=== PATIENT | female | born 1995 | race Two or more races ===

== ENCOUNTER → 2018-06-25 | Outpatient (CLI) | payer OTHER | END | disposition home or self-care (01) | LOC: LAB 16:36 | PROVIDERS: ATTEND Preventive Medicine Preventive Medicine/Occupational Environmental Medicine | DX: Z02.1 Encounter for pre-employment examination (principal) | CPT/HCPCS: 86735; 86762; 86765; 86787 ==

== ENCOUNTER → 2019-02-05 | Outpatient (CLI) | payer BC ==
[2019-02-05 13:11] LABS: Basophils # (auto) 0 uL; Basophils % (auto) 0.2 % (0.0-2.0); Eosinophils # (auto) 0.2 uL; Eosinophils % (auto) 1.6 % (0.0-7.0); Hematocrit 35.8 % (36.0-46.0); Hemoglobin 11.8 g/dL (12.2-16.2); Lymphocytes # (auto) 1.8 uL; Lymphocytes % (auto) 17.2 % (10.0-50.0); Mean Corpuscular Volume 81.8 fL (80.0-100.0); Monocytes # (auto) 0.5 uL; Monocytes % (auto) 4.9 % (0.0-12.0); Neutrophils # (auto) 7.8 uL; Neutrophils % (auto) 76.1 % (37.0-80.0); Platelet Count (auto) 283 10^3/uL (140-450); Red Blood Cells 4.37 10^6/uL (4.0-5.20); Red Cell Distribution Width 15.3 % (11.8-14.3); White Blood Cell 10.3 10^3/uL (4.4-10.8)
[2019-02-05 13:40] LABS: Alcohol, Urine < 3.0 mg/dL (0-5); Amphetamine Screen, Urine NEGATIVE (NEGATIVE); Barbiturate Scree,Urine NEGATIVE (NEGATIVE); Benzodiazephine Screen, Urine NEGATIVE (NEGATIVE); Cannabinoid Screen, Urine NEGATIVE (NEGATIVE); Cocaine Screen, Urine NEGATIVE (NEGATIVE); Opiate Scree,Urine NEGATIVE (NEGATIVE); Phencyclidine Screen, Urine NEGATIVE (NEGATIVE)
[2019-02-06 07:06] LABS: RPR Non Reactive (Non Reactive)
== END | disposition home or self-care (01) ==
LOC: LAB 12:15
PROVIDERS: ATTEND Obstetrics & Gynecology
DX: Z34.01 Encounter for supervision of normal first pregnancy, first trimester (principal); Z3A.08 8 weeks gestation of pregnancy
CPT/HCPCS: 36415; 80307; 84112; 84702; 85025; 86592; 86703; 86762; 86850; 86900; 86901; 87086; 87340

== ENCOUNTER → 2019-04-07 | Outpatient (CLI) | payer BC ==
[2019-04-07 07:40] LABS: Basophils # (auto) 0 uL; Basophils % (auto) 0.3 % (0.0-2.0); Eosinophils # (auto) 0.3 uL; Eosinophils % (auto) 2.4 % (0.0-7.0); Hematocrit 32.4 % (36.0-46.0); Hemoglobin 10.4 g/dL (12.2-16.2); Lymphocytes # (auto) 2.4 uL; Lymphocytes % (auto) 21.7 % (10.0-50.0); Mean Corpuscular Hemoglobin 25.6 pg (28.0-32.0); Mean Corpuscular Hgb Conc. 32.1 g/dL (32.0-36.0); Mean Corpuscular Volume 79.8 fL (80.0-100.0); Monocytes # (auto) 0.7 uL; Monocytes % (auto) 6.6 % (0.0-12.0); Neutrophils # (auto) 7.7 uL; Platelet Count (auto) 252 10^3/uL (140-450); Red Blood Cells 4.07 10^6/uL (4.0-5.20); Red Cell Distribution Width 14.2 % (11.8-14.3); White Blood Cell 11.2 10^3/uL (4.4-10.8)
== END | disposition home or self-care (01) ==
LOC: LAB 07:14
PROVIDERS: ATTEND Obstetrics & Gynecology
DX: O99.810 Abnormal glucose complicating pregnancy (principal); Z3A.16 16 weeks gestation of pregnancy
CPT/HCPCS: 36415; 82951; 85025

== ENCOUNTER 2019-04-20 12:52 | Observation (INO) | payer BC ==
[~2019-04-20] VITALS: Ht 154.9 cm; Wt 79.4 kg
[2019-04-20] MEDS ORDERED: LACTATED RINGER'S 1,000 ML IV ONE (13:45)
[2019-04-20] MEDS ORDERED: TERBUTALINE SULFATE 1 MG/ML 1ML VIAL SC ONE (15:22)
[2019-04-20] MEDS ORDERED: TERBUTALINE SULFATE 1 MG/ML 1ML VIAL SC SCH (15:30)
== END 2019-04-20 15:55 | disposition home or self-care (01) | DRG 833 ==
LOC: LDRP 12:52
PROVIDERS: ADMIT Specialist; ATTEND Specialist
DX: O62.9 Abnormality of forces of labor, unspecified (principal); O24.410 Gestational diabetes mellitus in pregnancy, diet controlled; Z3A.33 33 weeks gestation of pregnancy
CPT/HCPCS: 59025; 81002; 96372; G0378; J3105; 96361; 96365

== ENCOUNTER → 2019-04-29 | Outpatient (CLI) | payer BC ==
[2019-04-29 09:35] LABS: Basophils # (auto) 0 uL; Eosinophils # (auto) 0.2 uL; Hemoglobin 11.1 g/dL (12.2-16.2); Monocytes # (auto) 0.6 uL; Platelet Count (auto) 264 10^3/uL (140-450)
[2019-04-29 09:37] LABS: Basophils % (auto) 0.5 % (0.0-2.0); Eosinophils % (auto) 1.9 % (0.0-7.0); Hematocrit 33.3 % (36.0-46.0); Lymphocytes # (auto) 1.9 uL; Lymphocytes % (auto) 20.4 % (10.0-50.0); Mean Corpuscular Hemoglobin 25.5 pg (28.0-32.0); Mean Corpuscular Hgb Conc. 33.3 g/dL (32.0-36.0); Mean Corpuscular Volume 76.6 fL (80.0-100.0); Monocytes % (auto) 6.7 % (0.0-12.0); Neutrophils # (auto) 6.7 uL; Neutrophils % (auto) 70.5 % (37.0-80.0); Red Blood Cells 4.35 10^6/uL (4.0-5.20); Red Cell Distribution Width 14.5 % (11.8-14.3); White Blood Cell 9.5 10^3/uL (4.4-10.8)
[2019-04-30 06:06] LABS: RPR Non Reactive (Non Reactive)
== END | disposition home or self-care (01) ==
LOC: LAB 09:24
PROVIDERS: ATTEND Obstetrics & Gynecology
DX: Z34.83 Encounter for supervision of other normal pregnancy, third trimester (principal); Z3A.35 35 weeks gestation of pregnancy
CPT/HCPCS: 36415; 84112; 85025; 86592

== ENCOUNTER 2019-05-21 09:05 | Observation (INO) | payer BC ==
[2019-05-21] MEDS ORDERED: PREN-96 PO (11:43)
== END 2019-05-21 11:30 | disposition home or self-care (01) | DRG 833 ==
LOC: LDRP 09:05
PROVIDERS: ADMIT Obstetrics & Gynecology; ATTEND Obstetrics & Gynecology
DX: O24.419 Gestational diabetes mellitus in pregnancy, unspecified control (principal); Z3A.37 37 weeks gestation of pregnancy
CPT/HCPCS: 59025; 76818; 81002; 82962; G0378

== ENCOUNTER 2019-05-28 09:15 | Observation (INO) | payer BC ==
[~2019-05-28] VITALS: Ht 154.9 cm; Wt 78.5 kg
[~2019-05-28 09:15] MED LIST: PREN-96 PO
== END 2019-05-28 11:20 | disposition home or self-care (01) | DRG 833 ==
LOC: LDRP 09:15
PROVIDERS: ADMIT Obstetrics & Gynecology; ATTEND Obstetrics & Gynecology
DX: O24.419 Gestational diabetes mellitus in pregnancy, unspecified control (principal); Z3A.38 38 weeks gestation of pregnancy
CPT/HCPCS: 59025; 76818; 81002; 82948; 82962; G0378

== ENCOUNTER 2019-06-04 09:30 | Observation (INO) | payer BC | END 2019-06-04 10:30 | disposition home or self-care (01) | DRG 833 | LOC: LDRP 09:30 | PROVIDERS: ADMIT Obstetrics & Gynecology; ATTEND Obstetrics & Gynecology | DX: O24.419 Gestational diabetes mellitus in pregnancy, unspecified control (principal); Z3A.39 39 weeks gestation of pregnancy | CPT/HCPCS: 59025; 76818; 81002; 82962; G0378 ==

== ENCOUNTER 2019-06-07 04:37 | Inpatient (IN) | payer BC ==
[~2019-06-07] VITALS: Ht 154.9 cm; Wt 78.5 kg
[2019-06-07] MEDS ORDERED: LACTATED RINGER'S 1,000 ML IV SCH (05:41)
[2019-06-07] MEDS ORDERED: LACT. RINGERS/OXYTOCIN 20UNITS 1,000 ML IV SCH ×2 (05:41→06:09)
[2019-06-07] MEDS ORDERED: NALBUPHINE HCL 10 MG/1ml INJECTION IV PRN (05:45)
[2019-06-07] MEDS ORDERED: WITCH HAZEL-GLYCERIN PAD TOP PRN (05:45)
[2019-06-07] MEDS ORDERED: DERMOPLAST 60ML BOTTLE TOP PRN (05:45)
[2019-06-07] MEDS ORDERED: LIDOCAINE 2%HCL (LOCAL ANESTH.) INJ 20ML MDV ID PRN (05:45)
[2019-06-07] MEDS ORDERED: METHYLERGONOVINE MALEATE 0.2 MG/ML AMP IM PRN (05:45)
[2019-06-07] MEDS ORDERED: PHISODERM TOP SOLN 240ML BTL TOP PRN (05:45)
[2019-06-07] MEDS ORDERED: TERBUTALINE SULFATE 1 MG/ML 1ML VIAL SC ONE (06:15)
[2019-06-07 07:15] LABS: Eosinophils # (auto) 0.2 uL; Hemoglobin 9.9 g/dL (12.2-16.2); Monocytes # (auto) 0.7 uL; White Blood Cell 13.3 10^3/uL (4.4-10.8)
[2019-06-07 07:19] LABS: Basophils # (auto) 0 uL; Basophils % (auto) 0.2 % (0.0-2.0); Eosinophils % (auto) 1.6 % (0.0-7.0); Hematocrit 30.4 % (36.0-46.0); Lymphocytes % (auto) 22.4 % (10.0-50.0); Mean Corpuscular Hemoglobin 23.7 pg (28.0-32.0); Mean Corpuscular Hgb Conc. 32.5 g/dL (32.0-36.0); Neutrophils # (auto) 9.4 uL; Neutrophils % (auto) 70.8 % (37.0-80.0); Platelet Count (auto) 262 10^3/uL (140-450); Red Blood Cells 4.17 10^6/uL (4.0-5.20); Red Cell Distribution Width 15.9 % (11.8-14.3)
[2019-06-07 07:31] LABS: INR 0.89 (0.9-1.15); Partial Thromboplastin Time 25.8 sec (23.64-32.05)
[2019-06-07 07:35] LABS: Urine Bacteria NONE SEEN /hpf (None Seen); Urine Blood Negative /uL (Negative); Urine Mucus FEW (None Seen); Urine WBC 4 /hpf (0 - 5)
[2019-06-07 07:38] LABS: Albumin 2.4 g/dL (3.4-5.0); BUN/Creatinine Ratio 10.6; Calcium 8.7 mg/dL (8.5-10.1); Potassium 3.6 mmol/L (3.5-5.1)
[2019-06-07 07:40] LABS: Bilirubin, Total 0.3 mg/dL (0.2-1.0)
[2019-06-07 07:43] LABS: Alcohol, Urine < 3.0 mg/dL (0-5); Amphetamine Screen, Urine NEGATIVE (NEGATIVE); Barbiturate Scree,Urine NEGATIVE (NEGATIVE); Benzodiazephine Screen, Urine NEGATIVE (NEGATIVE); Cannabinoid Screen, Urine NEGATIVE (NEGATIVE); Cocaine Screen, Urine NEGATIVE (NEGATIVE); Opiate Scree,Urine NEGATIVE (NEGATIVE); Phencyclidine Screen, Urine NEGATIVE (NEGATIVE)
[2019-06-07] MEDS ORDERED: ACETAMINOPHEN 325 MG TAB PO PRN (13:15)
--- NOTE | 2019-06-07 13:30 | NUR ---
Teaching: Reviewed information in [employer] booklet with patient. Discussed benefits of and risks associated with not . Discussed different positions, proper latch, feeding cues, and baby-led . Provided information of medication side effects related to . All questions and concerns addressed at this time. Patient verbalized understanding of information.
--- NOTE | 2019-06-07 15:00 | NUR ---
Ambulation: Patient OOB with standby assistance by RN. Patient ambulated to bathroom with steady gait. Patient able to void without difficulty. [facility] teaching provided with returned demonstration by patient. Clean gown provided and bed linen changed. Patient ambulated back to bed with steady gait and no distress noted.
[2019-06-07] MEDS: IBUPROFEN 600 MG TAB PO PRN (16:23)
[2019-06-07 19:30] VITALS: BP 118/73
[2019-06-07 22:51] VITALS: BP 113/62
--- NOTE | 2019-06-08 00:15 | NUR ---
IV Catheter removed from left hand, 18 gauge catheter intact upon removal
[2019-06-08] MEDS: IBUPROFEN 600 MG TAB PO PRN ×4 (00:29→20:11)
[2019-06-08 02:58] VITALS: BP 109/59
[2019-06-08 07:15] VITALS: BP 101/60
[2019-06-08 08:09] LABS: RPR Non Reactive (Non Reactive)
[2019-06-08 11:00] VITALS: BP 115/56
[2019-06-08 15:00] VITALS: BP 119/59
[2019-06-08 19:00] VITALS: BP 123/62
[2019-06-08] MEDS ORDERED: INFLUENZA QUAD 2019-2020 0.5ml SYRG IM ONE (19:30)
[2019-06-08 23:00] VITALS: BP 117/58
[2019-06-09] MEDS: IBUPROFEN 600 MG TAB PO PRN ×2 (02:55→08:17)
[2019-06-09 02:56] VITALS: BP 113/56
--- NOTE | 2019-06-09 06:15 | NUR ---
report received from MARIETTA Byers on stable pt. Assumed care. Addendum: 06/09/19 at 1005 by Betty Yu RN Amended: Links added.
[2019-06-09 07:30] VITALS: BP 112/80
--- NOTE | 2019-06-09 09:50 | NUR ---
Discharge: Discharge instructions given as ordered. Pt encouraged to follow up with [facility] as instructed. All questions and concerns addressed. Patient verbalized understanding. Medication reconciliation completed and copy given to patient. All required/requested vaccines given and copies of vaccinations given to patient. Patient encouraged to prepare to depart unit.
--- NOTE | 2019-06-09 09:57 | NUR ---
Discharge: Patient ambulated with steady gait to vehicle, with all personal belongings, accompanied by staff and family member. No distress noted at time of departure, no adverse changes in status since initial assessment.
== END 2019-06-09 09:57 | disposition home or self-care (01) | DRG 807 ==
LOC: OBSVTOIN 04:37 → LDRP 04:37
PROVIDERS: ADMIT Obstetrics & Gynecology; ATTEND Obstetrics & Gynecology
PROC: 10E0XZZ Delivery of Products of Conception, External Approach (ICD-10-PCS; principal; 2019-06-07)
PROC: 0KQM0ZZ Repair Perineum Muscle, Open Approach (ICD-10-PCS; 2019-06-07)
PROC: 0W8NXZZ Division of Female Perineum, External Approach (ICD-10-PCS; 2019-06-07)
DX: O69.81X0 Labor and delivery complicated by cord around neck, without compression, not applicable or unspecified (principal); Z37.0 Single live birth; Z3A.39 39 weeks gestation of pregnancy; Z86.32 Personal history of gestational diabetes; O70.1 Second degree perineal laceration during delivery
CPT/HCPCS: 36415; 59025; 59409; 80053; 80307; 81001; 81002; 82962; 84112; 85025; 85610; 85730; 86592; 86850; 86900; 86901; 96361; 96366; 96372; G0378; J2590

== ENCOUNTER → 2019-07-22 | Outpatient (CLI) | payer BC | END | disposition home or self-care (01) | LOC: LAB 08:05 | PROVIDERS: ATTEND Obstetrics & Gynecology | DX: Z39.2 Encounter for routine postpartum follow-up (principal); O99.810 Abnormal glucose complicating pregnancy | CPT/HCPCS: 82951 ==

== ENCOUNTER → 2019-10-22 | Outpatient (CLI) | payer OTHER | END | disposition home or self-care (01) | LOC: LAB 10:18 | PROVIDERS: ATTEND Nurse Practitioner Family | DX: Z03.818 Encounter for observation for suspected exposure to other biological agents ruled out (principal) | CPT/HCPCS: C9803; U0003 ==